=== PATIENT | female | born 1980 | race Two or more races ===

== ENCOUNTER 2017-09-26 17:00 | Emergency (ER) | payer BC ==
[~2017-09-26] VITALS: Ht 149.9 cm; Wt 78.0 kg
[2017-09-26] MEDS ORDERED: IBUPROFEN600 MG ORAL (18:03)
[2017-09-26 18:20] VITALS: BP 124/81
--- NOTE | 2017-09-27 08:00 | Diagnostic Imaging Report ---
Indication: Pain status post trauma Technique: XRAY Ankle Compl Min 3v R Comparison: None Findings: Mild soft tissue swelling about the lateral malleolus. No acute fracture. Ankle mortise is intact on these nonstress views. No radiopaque foreign body identified. Impression: No acute fracture or dislocation. Mild soft tissue swelling about the lateral malleolus.
--- NOTE | 2017-09-27 08:01 | Diagnostic Imaging Report ---
Indication: Pain status post trauma Technique: XRAY Foot Complete R Comparison: None Findings: There is no acute fracture or dislocation. Joint spaces are within normal limits. No focal soft tissue defect appreciated. No radiopaque foreign body seen. Impression: No acute fracture or dislocation
--- NOTE | 2017-09-28 07:52 | Emergency Room Report ---
History of Present Illness General Chief Complaint: Lower Extremity Injury Source: Patient Present Illness HPI Patient presents with complaints of right ankle pain Patient was at her ankle several days ago however as the swelling have persisted patient also noticing some ecchymosis on the dorsal foot she was concerning came to the ER Pain is worse with ambulation Denies any neuropathy Pain is 5/10 Denies any calf pain or knee pain Patient does feel the pain goes to the heel as well as the lateral ankle Allergies: Coded Allergies: No Known Allergies (Unverified , 09/26/17) Patient History Past Medical History: see triage record Pertinent Family History: none Reviewed Nursing Documentation: PMH: Agreed, PSxH: Agreed Nursing Documentation-PMH Past Medical History: No Stated History Review of Systems All Other Systems: negative except mentioned in HPI Physical Exam Vital Signs Date Time Temp Pulse Resp B/P (MAP) Pulse Ox O2 Delivery O2 Flow Rate FiO2 09/26/17 17:29 97.9 72 20 115/73 99 Room Air Sp02 EP Interpretation: reviewed, normal General Appearance: well appearing, no apparent distress Head: normocephalic, atraumatic Eyes: bilateral eye PERRL, bilateral eye EOMI ENT: normal pharynx, no angioedema Neck: full range of motion, supple Genitourinary: no CVA tenderness Musculoskeletal: swelling - Swelling noted to the right lateral ankle there is also some ecchymosis at the lateral dorsal buggy ladle tender on palpation, Neurologic: oriented x3, [employer]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 Skin: other - Swelling and ecchymosis as noted above Lymphatic: no adenopathy Medical Decision Making Diagnostic Impression: Primary Impression: ankle sprain ER Course Patient was ambulatory in the emergency room X-ray region does not reveal any obvious acute fracture I feel the patient would benefit from decreased weightbearing And requires close followup Other X-Ray Diagnostic Results Other X-Ray Diagnostic Results #1: X-Ray ordered: right ankle # of Views/Limited Vs Complete: 3 View Indication: Pain EP Interpretation: Yes Interpretation: no dislocation, no soft tissue swelling, no fractures Impression: No acute disease Electronically Signed by: Mu Thompson, Other X-Ray Diagnostic Results #2: X-Ray ordered: right foot # of Views/Limited Vs Complete: 3 View Indication: Pain EP Interpretation: Yes Interpretation: no dislocation, no soft tissue swelling, no fractures Impression: No acute disease Electronically Signed by: Mu Thompson DO Last Vital Signs Date Time Temp Pulse Resp B/P (MAP) Pulse Ox O2 Delivery O2 Flow Rate FiO2 09/26/17 18:20 97.9 75 18 124/81 100 Room Air Status: improved Disposition: HOME, SELF-CARE Condition: Stable Scripts Ibuprofen* (MOTRIN*) 600 Mg Tablet 600 MG ORAL Q8H Y for For Pain, #20 TAB 0 Refills Prov: MU THOMPSON D.O. 09/26/17 Referrals: NOT CHOSEN [facility]/,REFERRING (PCP) Departure Forms: Return to Work Return to Work in (Days): 2 Return to Work Date: Sep 29, 2017 Patient Instructions: Ankle Sprain Additional Instructions: Patient is provided with the discharge instructions notified to follow up with primary doctor in the next 2-3 days otherwise return to the er with any worsening symptoms. Please note that this report is being documented using DRAGON technology. This can lead to erroneous entry secondary to incorrect interpretation by the dictating instrument. MU THOMPSON D.O. Sep 28, 2017 07:52
== END 2017-09-26 18:30 | disposition home or self-care (01) ==
LOC: EMR 18:24
DX: S93.401A Sprain of unspecified ligament of right ankle, initial encounter (principal); X58.XXXA Exposure to other specified factors, initial encounter; Y93.9 Activity, unspecified; Y99.9 Unspecified external cause status; M25.571 Pain in right ankle and joints of right foot
CPT/HCPCS: 99284